=== PATIENT | male | born 1995 | race Caucasian/White ===

== ENCOUNTER 2019-10-04 16:20 | Emergency (ER) | payer OTHER ==
[2019-10-04 16:53] VITALS: BP 125/73
--- NOTE | 2019-10-04 17:10 | UC ---
Skin Complaint HPI - HPI Summary HPI Summary: 24 yo male presents with rash. He tells me that he has a long history of eczema and that every winter he will get a "flare". 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 He usually applies lotion and lauren butter, but over the last 2-3 weeks his hands have been getting very dry, scaly, painful, and bleeding at times. Denies fever. - History of Current Complaint Chief Complaint: UCSkin Time Seen by Provider: 10/04/19 17:09 Stated Complaint: SKIN COMPLAINT Hx Obtained From: Patient Onset/Duration: Gradual Onset Onset Severity: Mild Current Severity: Mild Pain Intensity: 3 Pain Scale Used: 0-10 Numeric - Allergy/Home Medications Allergies/Adverse Reactions: Allergies Allergy/AdvReac Type Severity Reaction Status Date / Time divalproex sodium AdvReac Intermediate "slept for Verified 10/04/19 16:53 [From Depakote] 3 days" PMH/Surg Hx/FS Hx/Imm Hx - Additional Past Medical History Additional PMH: Eczema - Surgical History Surgical History: None - Family History Known Family History: Positive: None - Social History Occupation: Employed Full-time Lives: With Family Alcohol Use: Weekly Alcohol Amount: 5 days a week Substance Use Type: Marijuana Substance Use Comment - Amount & Last Used: 2 times a day Smoking Status (MU): Heavy Every Day Tobacco Smoker Type: Cigarettes Amount Used/How Often: 1 ppd Length of Time of Smoking/Using Tobacco: 1 Year Have You Smoked in the Last Year: Yes Household Exposure Type: Cigarettes - Immunization History Vaccination Up to Date: Yes Review of Systems All Other Systems Reviewed And Are Negative: No Constitutional: Positive: Negative Skin: Positive: Rash Eyes: Positive: Negative ENT: Positive: Negative Respiratory: Positive: Negative Cardiovascular: Positive: Negative Gastrointestinal: Positive: Negative Neurological: Positive: Negative Psychological: Positive: Negative Physical Exam - Summary Physical Exam Summary: GENERAL: NAD. WDWN. No pain distress. SKIN: B/L hands with severe dry scaly appearing skin. Scattered fissuring of skin at skin folds and joint spaces. B/L wrists and distal forearms with moderate similar appearance. No drainage or erythema. NECK: Supple. Nontender. No lymphadenopathy. CHEST: No accessory muscle use. Breathing comfortably and in no distress. CV: Pulses intact. Cap refill <2seconds NEURO: Alert. PSYCH: Age appropriate behavior. Triage Information Reviewed: Yes Vital Signs: Initial Vital Signs Temp 99.2 F 10/04/19 16:47 Pulse 76 10/04/19 16:47 Resp 17 10/04/19 16:47 BP 125/73 10/04/19 16:47 Pulse Ox 100 10/04/19 16:47 Vital Signs Reviewed: Yes Course/Dx - Course Course Of Treatment: Eczema of hands. Rx for prednisone and kenalog cream. Strongly encouraged to f/u with a PCP for further treatment - Diagnoses Provider Diagnosis: Eczema Discharge ED - Sign-Out/Discharge Documenting (check all that apply): Patient Departure All imaging exams completed and their final reports reviewed: No Studies - Discharge Plan Condition: Stable Disposition: HOME Prescriptions: predniSONE 20 mg TAB [Deltasone 20 MG TAB*] 40 mg PO DAILY #10 tab Triamcinolone 0.1% CREAM (NF) [Kenalog 0.1% Cream (NF)] 1 applic TOPICAL BID #1 tube Patient Education Materials: Eczema (ED) Referrals: [facility] [Outside] - As Soon As Possible Additional Instructions: If you develop a fever, shortness of breath, chest pain, new or worsening symptoms - please call your PCP or go to the ED immediately. - Billing Disposition and Condition Condition: STABLE Disposition: Home
== END 2019-10-04 17:24 | disposition home or self-care (01) ==
LOC: UCCORT 16:20
DX: L30.9 Dermatitis, unspecified (principal); F17.210 Nicotine dependence, cigarettes, uncomplicated; Z88.8 Allergy status to other drugs, medicaments and biological substances
CPT/HCPCS: 99202; G0463